=== PATIENT | female | born 1995 | race Two or more races ===

== ENCOUNTER 2021-06-24 19:57 | Emergency (ER) | payer MEDICAID ==
[~2021-06-24] VITALS: Ht 154.9 cm; Wt 113.4 kg
--- NOTE | 2021-06-24 20:06 | NUR ---
Patient came to ER C/O bilateral earache more prominent on the left, sore throat and coughing and green phlegm for 3 days. Patient is A/O x4, no SOB, no distress noted
--- NOTE | 2021-06-24 20:08 | NUR ---
Dr Zamora in room for CYRIL
--- NOTE | 2021-06-24 21:17 | NUR ---
Patient discharged to home in stable condition. Written and verbal after care instructions given. Patient verbalizes understanding of instructions. Stressed follow up or return to ER for worsening s/s. Patient is A/Ox4, no SOB, no distress noted
[2021-06-24 21:21] VITALS: BP 120/76
== END 2021-06-24 21:23 | disposition home or self-care (01) ==
LOC: ER 19:58
DX: J06.9 Acute upper respiratory infection, unspecified (principal); Z20.822 Contact with and (suspected) exposure to COVID-19
CPT/HCPCS: 71045; 87426; 99284; U0003; A4663